=== PATIENT | female | born 1945 | race Caucasian/White ===

== ENCOUNTER 2024-03-23 09:43 | Observation (INO) | payer OTHER, BC ==
[2024-03-23] MEDS: SODIUM CHLORIDE 0.9% 500 ML INFUS.BAG IV ONE ×2 (10:40→12:08)
[2024-03-23 11:03] LABS: BASO % 0.5 % (0-2.0); EOS % 1.2 % (0-4.5); HEMATOCRIT 35.2 % (32.4-45.2); HEMOGLOBIN 11.5 GM/dL (10.7-15.3); LYMPH % 14.5 % (8-40); MCH 30.4 pg (25.7-33.7); MCHC 32.5 g/dl (32.0-36.0); MEAN CELL VOLUME 93.7 fl (80-96); MONO % 7.1 % (3.8-10.2); NEUT % 76.7 % (42.8-82.8); PLATELET COUNT 222 10^3/uL (134-434); RBC 3.76 M/mm3 (3.60-5.2); RDW 12.9 % (11.6-15.6); WHITE BLOOD COUNT 7.5 K/mm3 (4.0-10.0)
[2024-03-23 11:16] LABS: POTASSIUM 4.8 mmol/L (3.5-5.1)
[2024-03-23 11:18] LABS: CALCIUM 9.3 mg/dL (8.5-10.1)
[2024-03-23 11:19] LABS: ALBUMIN 3.8 g/dl (3.4-5.0); BLOOD UREA NITROGEN 66.6 mg/dL (7-18)
[2024-03-23 11:22] LABS: CREATININE 1.8 mg/dL (0.55-1.3)
[2024-03-23 11:23] LABS: BILIRUBIN,TOTAL 0.4 mg/dL (0.2-1); TOT PROT 7.1 g/dl (6.4-8.2)
[2024-03-23 11:24] LABS: EPI CELLS 5 /uL (0-25.1); HYALINE CASTS 0 /uL (0-3.1); URINE APPEARANCE CLOUDY; URINE BACTERIA 660 /uL (0-1359); URINE BILIRUBIN NEGATIVE (NEGATIVE); URINE COLOR YELLOW; URINE GLUCOSE (UA) NEGATIVE (NEGATIVE); URINE KETONE NEGATIVE (NEGATIVE); URINE LEUK ESTERASE 3+ (NEGATIVE); URINE NITRITE NEGATIVE (NEGATIVE); URINE PROTEIN NEGATIVE (NEGATIVE); URINE RBC 40 /uL (0-23.9); URINE UROBILINOGEN 0.2 mg/dL (0.2-1.0); URINE WBC 1299 /uL (0-25.8)
[2024-03-23] MEDS: CEFTRIAXONE 1 GM in DEXTROSE 5%-WATER - 100 ML IVPB ONE (12:06)
[2024-03-23] MEDS ORDERED: CEFTRIAXONE 1 GM/50 ML BAG ONE (12:06)
[2024-03-23] MEDS ORDERED: SODIUM CHLORIDE 1,000 ML IV SCH (13:30)
[2024-03-23] MEDS ORDERED: HEPARIN NA (PORCINE) 5,000 UNITS/ML 1ML VIAL SQ SCH (14:00)
[2024-03-23 14:08] VITALS: BMI 21.9
[2024-03-23] MEDS ORDERED: SENNOSIDES 8.6MG TABLET (FP) PO PRN (14:42)
[2024-03-23] MEDS ORDERED: POLYETHYLENE GLYCOL 3350 255 GM BTL PO PRN (14:42)
[2024-03-23] MEDS ORDERED: POLYETHYLENE GLYCOL (HEALTHYLAX) 3350 17 GM PACKET PO PRN (15:21)
[2024-03-23] MEDS: APIXABAN 2.5 MG TABLET PO SCH (21:05)
[2024-03-23] MEDS: METOPROLOL TARTRATE 25 MG TABLET (FP) PO SCH (21:05)
[2024-03-24] MEDS: CEFTRIAXONE 1 GM in DEXTROSE 5%-WATER - 50 ML IVPB SCH (11:43)
[2024-03-24] MEDS: CHOLECALCIFEROL (VIT D3) 1,000 UNIT (25 MCG) TABLET PO SCH (11:44)
[2024-03-24 12:53] LABS: HEMATOCRIT 34.4 % (32.4-45.2); HEMOGLOBIN 11.1 GM/dL (10.7-15.3); MCH 30.4 pg (25.7-33.7); MCHC 32.2 g/dl (32.0-36.0); MEAN CELL VOLUME 94.6 fl (80-96); MEAN PLT VOLUME 8.7 fl (7.5-11.1); PLATELET COUNT 211 10^3/uL (134-434); RBC 3.64 M/mm3 (3.60-5.2); RDW 13.3 % (11.6-15.6)
[2024-03-24 13:12] LABS: POTASSIUM 4.1 mmol/L (3.5-5.1)
[2024-03-24 13:19] LABS: CREATININE 1.3 mg/dL (0.55-1.3)
[2024-03-24 17:55] VITALS: RESP 18
[2024-03-25 05:52] VITALS: TEMP 98.2
[2024-03-25 08:25] LABS: BASO % 0.5 % (0-2.0); EOS % 2.2 % (0-4.5); HEMATOCRIT 32.1 % (32.4-45.2); HEMOGLOBIN 10.4 GM/dL (10.7-15.3); LYMPH % 19.4 % (8-40); MCH 30.4 pg (25.7-33.7); MCHC 32.3 g/dl (32.0-36.0); MEAN CELL VOLUME 93.9 fl (80-96); MEAN PLT VOLUME 8.8 fl (7.5-11.1); MONO % 9.2 % (3.8-10.2); NEUT % 68.7 % (42.8-82.8); PLATELET COUNT 189 10^3/uL (134-434); RBC 3.42 M/mm3 (3.60-5.2); RDW 13.3 % (11.6-15.6); WHITE BLOOD COUNT 6.3 K/mm3 (4.0-10.0)
[2024-03-25 08:29] LABS: POTASSIUM 4.1 mmol/L (3.5-5.1)
[2024-03-25 08:39] LABS: CREATININE 1.3 mg/dL (0.55-1.3)
[2024-03-25 14:38] VITALS: BP 117/56; PULSE 65
== END 2024-03-25 15:52 | disposition home or self-care (01) ==
LOC: JER 09:43 → JERBED 11:49 → J4S 13:29
PROVIDERS: ADMIT Internal Medicine
PROC: 3E03329 Introduction of Other Anti-infective into Peripheral Vein, Percutaneous Approach (ICD-10-PCS; principal; 2024-03-23)
PROC: 3E0337Z Introduction of Electrolytic and Water Balance Substance into Peripheral Vein, Percutaneous Approach (ICD-10-PCS; 2024-03-23)
DX: N39.0 Urinary tract infection, site not specified (principal); I25.10 Atherosclerotic heart disease of native coronary artery without angina pectoris; I11.0 Hypertensive heart disease with heart failure; I48.0 Paroxysmal atrial fibrillation; I10 Essential (primary) hypertension; R32 Unspecified urinary incontinence; K59.09 Other constipation; Z79.01 Long term (current) use of anticoagulants; Z95.0 Presence of cardiac pacemaker; Z85.3 Personal history of malignant neoplasm of breast; S31.000D Unspecified open wound of lower back and pelvis without penetration into retroperitoneum, subsequent encounter; X58.XXXD Exposure to other specified factors, subsequent encounter
CPT/HCPCS: 0241U-QW; 36415; 71045-TC-FY; 80048; 80053; 81003; 82962; 84484; 85025; 85027; 87086; 87186; 93005; 93010; 93306-TC; 96365; 96366; 97116-GP; 97161-GP; 99285-25; G0378